=== PATIENT | female | born 1995 | race Caucasian/White ===

== ENCOUNTER 2019-10-30 17:25 | Emergency (ER) | payer SELFPAY ==
[~2019-10-30] VITALS: Ht 165.1 cm; Wt 70.0 kg
[2019-10-30 17:28] VITALS: BP 120/80
[2019-10-30] MEDS ORDERED: LIDOCAINE-MPF 1%, 5ML ONE ×2 (18:57→19:45)
[2019-10-30] MEDS ORDERED: L.E.T SOLUTION TP ONE ×2 (18:57→19:00)
[2019-10-30] MEDS ORDERED: LIDOCAINE-MPF 1%, 5ML INFIL ONE (19:00)
[2019-10-30] MEDS ORDERED: HYDROcodone/APAP 5/325 TABLET PO ONE (20:00)
[2019-10-30] MEDS ORDERED: HYDROcodone/APAP 5/325 TABLET ONE (20:27)
== END 2019-10-30 20:38 | disposition home or self-care (01) ==
LOC: ED 20:30
DX: N75.1 Abscess of Bartholin's gland (principal); R10.2 Pelvic and perineal pain; F17.200 Nicotine dependence, unspecified, uncomplicated
CPT/HCPCS: 56420; 99283

== ENCOUNTER 2020-08-17 16:49 | Emergency (ER) | payer MEDICAID ==
[~2020-08-17] VITALS: Ht 165.1 cm; Wt 69.0 kg
[2020-08-17 17:47] LABS: MEAN CORPUSCULAR HGB CONC 32.5 g/dL (32.4-35.8); MEAN PLATELET VOLUME 10.5 fL (7.4-10.4); PLATELET COUNT 255 x10^3/uL (130-400); RED BLOOD COUNT 5.53 x10^6/uL (3.82-5.3); RED CELL DISTRIBUTION WIDTH 15.1 % (9.6-15.2)
[2020-08-17 17:58] LABS: ALANINE AMINOTRANSFERASE 17 U/L (12-78); ANION GAP 6 mmol/L (5-15); CALCIUM 8.9 mg/dL (8.5-10.1); CHLORIDE 108 mmol/L (98-107); CREATININE 0.78 mg/dL (0.55-1.02)
[2020-08-17 18:06] LABS: MD YES
[2020-08-17 18:09] LABS: ALKALINE PHOSPHATASE 68 U/L (45-117); BILIRUBIN,TOTAL 0.7 mg/dL (0.2-1.0); TOTAL PROTEIN 7.5 g/dL (6.4-8.2)
[2020-08-17 18:12] LABS: SALICYLATE LEVEL < 1.7 mg/dL (2.8-20.0)
--- NOTE | 2020-08-17 18:30 | NUR ---
PT IN HOSPITAL GOWN. ROOM SECURED. PT ABLE TO GIVE URINE SAMPLE. URINE WALKED TO LAB. PT CALM COOPERATIVE.
[2020-08-17 18:33] LABS: MICROSCOPIC AUTO
--- NOTE | 2020-08-17 18:40 | NUR ---
BOOM MASTER IN SPEAKING WITH PT.
[2020-08-17 18:49] LABS: AMPHETAMINE SCREEN, URINE Negative (Negative); BARBITURATE SCREEN, URINE Negative (Negative); BENZODIAZEPINE SCREEN, URINE Negative (Negative); CANNABINOID SCREEN, URINE Positive (Negative); COCAINE SCREEN, URINE Positive (Negative); METHADONE SCREEN, URINE Negative (Negative); OPIATE SCREEN, URINE Negative (Negative)
--- NOTE | 2020-08-17 18:58 | NUR ---
Report from Bruce WOOD. Pt pending telepsych at this time. Telepsych monitor at bedside. Pt provided with water per request. Safety of room ensured, sitter in view from DOTT[facility] morillo, will continue to monitor
[2020-08-17 19:29] LABS: <PLATELET ESTIMATE> ADEQUATE; <PLT MORPHOLOGY> NORMAL PLT MORPH; <RBC MORPHOLOGY> NORMAL; BANDS%(MANUAL) 1 % (0-7); BASOS% (MANUAL) 1 % (0-1); LYMPHS% (MANUAL) 25 % (22-44); MONOS% (MANUAL) 4 % (2-9); SEGS% (MANUAL) 69 % (42-75)
--- NOTE | 2020-08-17 20:15 | NUR ---
Pt resting in [facility] at this time, provided with sandwich and water per request. Denies further needs at this time, gómez SINCLAIRter observing from [facility], will continue to monitor
--- NOTE | 2020-08-17 22:15 | NUR ---
Pt states she does not have a current suicide plan, she states she has a current psychiatrist/therapist in [place] and will follow up with them. Pt states she has not had a suicide plan since high school, and has just been feeling depressed. Pt feels safe going home. Order for PO ativan to be placed, will re-evaluate and contact pt ex for potential discharge around 2300
[2020-08-17] MEDS ORDERED: LORazepam 0.5MG TABLET PO ONE (22:30)
--- NOTE | 2020-08-17 22:53 | NUR ---
Message left for pt ex- Eddi at [phone] Velázquez, pt to be reevaluted at 2300 for potential DC
--- NOTE | 2020-08-17 23:40 | NUR ---
Pt states she has not heard from ex- at this time, and this RN has not receieved call back after leaving a voicemail previously.
--- NOTE | 2020-08-18 00:25 | NUR ---
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
[2020-08-18 00:50] VITALS: BP 116/60
--- NOTE | 2020-08-18 00:50 | NUR ---
Pt ex-, Eddi, here to berry picker pt. Dr Velázquez at bedside to explain DC, safety precautions, and following up. Pt states she is not suicidal, does not have a plan, and is following up in [place] with her therapist. Eddi at bedside states he is driving pt home at this time, and she is flying back to [place] tomorrow. Pt informed she will receive a follow up phone call tomorrow to check on her. Pt and walked off unit
--- NOTE | 2020-08-18 11:42 | NUR ---
THROUGHPUT RN: FOLLOW UP CALL COMPLETE. PT STATES SHE FEELS MUCH BETTER. DENIES SI/HI. EDUCATED TO COME BACK TO ER FOR CONCERNS OR IF PT STARTS EXPERIENCING SI/HI. PT VERBALIZES UNDERSTANDING.
== END 2020-08-18 01:20 | disposition home or self-care (01) ==
LOC: ED 19:42
DX: F31.9 Bipolar disorder, unspecified (principal); F41.1 Generalized anxiety disorder; F17.210 Nicotine dependence, cigarettes, uncomplicated; Z91.14 Patient's other noncompliance with medication regimen
CPT/HCPCS: 36415; 80053; 80307; 81001; 84443; 84703; 85025; 87086; 99284; 99406